=== PATIENT | female | born 1985 | race Caucasian/White ===

== ENCOUNTER 2017-06-20 01:42 | Emergency (ER) | payer OTHER ==
[~2017-06-20] VITALS: Ht 165.1 cm; Wt 60.0 kg
[2017-06-20 02:00] VITALS: BP 128/63; PULSE 91; RESP 16; TEMP 98.8; O2SAT 100
[2017-06-20 02:28] LABS: AUTOMATED NEUTROPHIL # 8.3 TH/MM3 (1.8-7.7); BASOPHIL % 0.3 % (0.0-2.0); EOSINOPHIL % 0.1 % (0.0-4.0); HEMO FLAGS DIFF FINAL; LYMPH % 8.5 % (9.0-44.0); LYMPHOCYTE # 0.8 TH/MM3 (1.0-4.8); MEAN CELL VOLUME 95.2 FL (80.0-100.0); MEAN CORPUSCULAR HEMOGLOBIN 32.5 PG (27.0-34.0); MEAN CORPUSCULAR HGB CONC 34.1 % (32.0-36.0); MONO % 2.4 % (0.0-8.0); NEUT % 88.7 % (16.0-70.0); PLATELET COUNT 232 TH/MM3 (150-450); RED BLOOD COUNT 3.79 MIL/MM3 (4.00-5.30); RED CELL DISTRIBUTION WIDTH 11.6 % (11.6-17.2); WHITE BLOOD COUNT 9.4 TH/MM3 (4.0-11.0)
--- NOTE | 2017-06-20 02:51 | PD ---
HPI Chief Complaint: Psychiatric Symptoms Time Seen by Provider: 01:53 Travel History International Travel<30 days: No Contact w/Intl Traveler<30days: No Traveled to known affect area: No History of Present Illness HPI 31-year-old female with no significant medical history presents to the emergency department under a Nesbitt act for psychiatric evaluation. Patient contracted argument with her . She said she was going to kill herself. Per report she took a knife and threatened to kill herself. Please recall. Patient was brought to the emergency department. Patient states that she was upset but did not want to kill herself. She has no suicidal or homicidal ideations. She reports no other symptoms at this time. PFSH Past Medical History Medical History: Denies Significant Hx Diminished Hearing: No Tetanus Vaccination: Unknown ?: Not LMP: 2 days ago : 0 Para: 0 Miscarriage: 0 : 0 Social History Alcohol Use: Yes (occ) Tobacco Use: No Substance Use: No Allergies-Medications (Allergen,Severity, Reaction): Coded Allergies: No Known Allergies (Unverified , 06/20/17) Reported Meds & Prescriptions Reported Meds & Active Scripts Active No Active Prescriptions or Reported Medications Review of Systems Except as stated in HPI: all other systems reviewed are Neg Physical Exam Narrative GENERAL: Well-nourished female patient, tearful but in no acute distress SKIN: Focused skin assessment warm/dry. HEAD: Atraumatic. Normocephalic. EYES: Pupils equal and round. No scleral icterus. No injection or drainage. ENT: No nasal bleeding or discharge. Mucous membranes pink and moist. NECK: Trachea midline. No JVD. CARDIOVASCULAR: Regular rate and rhythm. No murmur appreciated. RESPIRATORY: No accessory muscle use. Clear to auscultation. Breath sounds equal bilaterally. GASTROINTESTINAL: Abdomen soft, non-tender, nondistended. Hepatic and splenic margins not palpable. MUSCULOSKELETAL: No obvious deformities. No clubbing. No cyanosis. No edema. NEUROLOGICAL: Awake and alert. No obvious cranial nerve deficits. Motor grossly within normal limits. Normal speech. Data Data Last Documented VS Vital Signs Date Time Temp Pulse Resp B/P (MAP) Pulse Ox O2 Delivery O2 Flow Rate FiO2 06/20/17 02:00 98.8 91 16 128/63 (84) 100 Orders Orders Complete Blood Count With Diff (06/20/17 01:53) Basic Metabolic Panel (Bmp) (06/20/17 01:53) Ed Urine Pregnancytest Poc (06/20/17 01:53) Psych Screen (06/20/17 01:53) Drug Screen, Random Urine (06/20/17 01:53) Alcohol (Ethanol) (06/20/17 01:53) Labs Laboratory Tests Test 06/20/17 02:10 White Blood Count 9.4 TH/MM3 Red Blood Count 3.79 MIL/MM3 Hemoglobin 12.3 GM/DL Hematocrit 36.0 % Mean Corpuscular Volume 95.2 FL Mean Corpuscular Hemoglobin 32.5 PG Mean Corpuscular Hemoglobin Concent 34.1 % Red Cell Distribution Width 11.6 % Platelet Count 232 TH/MM3 Mean Platelet Volume 9.1 FL Neutrophils (%) (Auto) 88.7 % Lymphocytes (%) (Auto) 8.5 % Monocytes (%) (Auto) 2.4 % Eosinophils (%) (Auto) 0.1 % Basophils (%) (Auto) 0.3 % Neutrophils # (Auto) 8.3 TH/MM3 Lymphocytes # (Auto) 0.8 TH/MM3 Monocytes # (Auto) 0.2 TH/MM3 Eosinophils # (Auto) 0.0 TH/MM3 Basophils # (Auto) 0.0 TH/MM3 CBC Comment DIFF FINAL Differential Comment Blood Urea Nitrogen 10 MG/DL Creatinine 0.75 MG/DL Random Glucose 108 MG/DL Calcium Level 8.2 MG/DL Sodium Level 139 MEQ/L Potassium Level 4.0 MEQ/L Chloride Level 107 MEQ/L Carbon Dioxide Level 27.7 MEQ/L Anion Gap 4 MEQ/L Estimat Glomerular Filtration Rate 90 ML/MIN Urine Opiates Screen NEG Urine Barbiturates Screen NEG Urine Amphetamines Screen NEG Urine Benzodiazepines Screen NEG Urine Cocaine Screen NEG Urine Cannabinoids Screen NEG Ethyl Alcohol Level LESS THAN 3 MG/DL MDM Medical Decision Making Medical Screen Exam Complete: Yes Emergency Medical Condition: Yes Medical Record Reviewed: Yes Differential Diagnosis Mood disorder versus personality disorder versus adjustment reaction disorder Narrative Course 31-year-old female presents to emergency department a Nesbitt act for psychiatric evaluation. Patient appears without distress. Her vital signs are stable. Lab work is without acute concern. Patient is medically cleared to undergo psychiatric screening for further evaluation and disposition. Mental health screening discussed with the patient. Psychiatric screen ordered. 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
[2017-06-20 02:53] LABS: ANION GAP 4 MEQ/L (5-15); BICARBONATE 27.7 MEQ/L (21.0-32.0); BLOOD UREA NITROGEN 10 MG/DL (7-18); CHLORIDE 107 MEQ/L (98-107); GLOMERULAR FILTRATION RATE 90 ML/MIN (>89); SODIUM (NA) 139 MEQ/L (136-145)
[2017-06-20 03:03] LABS: ALCOHOL LESS THAN 3 MG/DL (0-5)
[2017-06-20 06:00] VITALS: PULSE 60; RESP 16; O2SAT 100
--- NOTE | 2017-06-20 12:07 | PD ---
History of Present Illness Chief Complaint: Psychiatric Symptoms Time Seen by Provider: 11:30 Travel History International Travel<30 Days: No Contact w/Intl Traveler<30days: No Known affected area: No Legal Status Legal Status: Nesbitt Act Nesbitt Act Signed By: Martínez Lara Nesbitt Act Comment: Ofc. Randall # [id number] History of Present Illness: History of Present Illness HPI 31-year-old female with no significant medical history and no psychiatric history presents to the emergency department under a Nesbitt act initiated by JOSHUA. The Nesbitt act alleges that the police were called by the patient's boyfriend after she picked up a knife and threatened to hurt herself. She did not make any attempt. Her threats were made in context of an argument with her boyfriend. The patient was monitored in J pod with no behavioral concerns and no suicidality. EMR reviewed. No previous contact with [facility] psychiatry. Patient is seen . She is alert, oriented, calm and cooperative female who appears stated age. Dressed in hospital gown and maintaining basic hygiene. Speech is clear, no psychosis and no nan. Patient with no objective clinical signs of depression or anxiety. She denies any psychiatric symptomatology. Denies any suicidal or homicidal ideation and states ' I was very angry and I made the threats but i never intended to harm myself or anyone". PFSH Past Medical History Medical History: Denies Significant Hx Diminished Hearing: No Tetanus Vaccination: Unknown ?: Not LMP: 2 days ago : 0 Para: 0 Miscarriage: 0 : 0 Psychiatric History Psychiatric History Hx Psychiatric Treatment: None History of Inpatient Treatment: No Guns or firearms in home: No Social History Single female who is living with her boyfriend. She has no children. works in accounts receivable Hx Alcohol Use: Yes (occ) Hx Tobacco Use: No Hx Substance Use: No Hx of Substance Use Treatment: No Family Psychiatric History Negative Allergies-Medications (Allergen,Severity, Reaction): Coded Allergies: No Known Allergies (Unverified , 06/20/17) Reported Meds & Prescriptions Reported Meds & Active Scripts Active No Active Prescriptions or Reported Medications Review of Systems Except as stated in HPI: all other systems reviewed are Neg Exam Alert: Yes [place]: Person (ox4) Mood: Calm Affect: Appropriate Speech: Clear, Logical Eye Contact: Normal Memory Intact: Comment (no impairment) Hallucinations: Other (Negative) Delusions: No Suicidal: Ideation (Deneis any) Homicidal: Ideation (Deneis any) Insight/Judgement Fair. Not impaired. MDM Medical Decision Making Medical Record Reviewed: Yes Assessment/Plan 31-year-old female with no significant medical history and no psychiatric history presents to the emergency department under a Nesbitt act initiated by JOSHUA. The Nesbitt act alleges that the police were called by the patient's boyfriend after she picked up a knife and threatened to hurt herself. She did not make any attempt. Her threats were made in context of an argument with her boyfriend. The patient was monitored in J pod with no behavioral concerns and no suicidality. No evidence of any unstable mental illness as defined under the Nesbitt act . Patietn is clear psychiatrically for discharge from ED. BA is lifted. Orders Orders Complete Blood Count With Diff (06/20/17 01:53) Basic Metabolic Panel (Bmp) (06/20/17 01:53) Ed Urine Pregnancytest Poc (06/20/17 01:53) Psych Screen (06/20/17 01:53) Drug Screen, Random Urine (06/20/17 01:53) Alcohol (Ethanol) (06/20/17 01:53) Diet Regular Basic (06/20/17 Lunch) Results Vital Signs Date Time Temp Pulse Resp B/P (MAP) Pulse Ox O2 Delivery O2 Flow Rate FiO2 06/20/17 06:00 60 16 100 Room Air 06/20/17 02:00 98.8 91 16 128/63 (84) 100 Laboratory Tests Test 06/20/17 02:10 White Blood Count 9.4 Red Blood Count 3.79 Hemoglobin 12.3 Hematocrit 36.0 Mean Corpuscular Volume 95.2 Mean Corpuscular Hemoglobin 32.5 Mean Corpuscular Hemoglobin Concent 34.1 Red Cell Distribution Width 11.6 Platelet Count 232 Mean Platelet Volume 9.1 Neutrophils (%) (Auto) 88.7 Lymphocytes (%) (Auto) 8.5 Monocytes (%) (Auto) 2.4 Eosinophils (%) (Auto) 0.1 Basophils (%) (Auto) 0.3 Neutrophils # (Auto) 8.3 Lymphocytes # (Auto) 0.8 Monocytes # (Auto) 0.2 Eosinophils # (Auto) 0.0 Basophils # (Auto) 0.0 CBC Comment DIFF FINAL Differential Comment Blood Urea Nitrogen 10 Creatinine 0.75 Random Glucose 108 Calcium Level 8.2 Sodium Level 139 Potassium Level 4.0 Chloride Level 107 Carbon Dioxide Level 27.7 Anion Gap 4 Estimat Glomerular Filtration Rate 90 Urine Opiates Screen NEG Urine Barbiturates Screen NEG Urine Amphetamines Screen NEG Urine Benzodiazepines Screen NEG Urine Cocaine Screen NEG Urine Cannabinoids Screen NEG Ethyl Alcohol Level LESS THAN 3 Diagnosis Primary Impression: Adjustment reaction Psychiatrically Cleared: Yes Med/ Other Pt Specific Info: No Meds Exist/No RX given Prescriptions No Active Prescriptions or Reported Meds Disposition: 01 DISCHARGE HOME Condition: Stable Problem Qualifiers Primary Impression: Adjustment reaction Qualified Codes: F43.25 - Adjustment disorder with mixed disturbance of emotions and conduct Rebecca Munguia Jun 20, 2017 12:07
--- NOTE | 2017-06-20 12:48 | PD ---
Physical Exam Time Seen by Provider: 12:46 NORY Campbell evaluated the patient, lifted the Nesbitt act and the patient will be discharged home. Data Data Last Documented VS Vital Signs Date Time Temp Pulse Resp B/P (MAP) Pulse Ox O2 Delivery O2 Flow Rate FiO2 06/20/17 06:00 60 16 100 Room Air 06/20/17 02:00 98.8 128/63 (84) Orders Orders Complete Blood Count With Diff (06/20/17 01:53) Basic Metabolic Panel (Bmp) (06/20/17 01:53) Ed Urine Pregnancytest Poc (06/20/17 01:53) Psych Screen (06/20/17 01:53) Drug Screen, Random Urine (06/20/17 01:53) Alcohol (Ethanol) (06/20/17 01:53) Diet Regular Basic (06/20/17 Lunch) Labs Laboratory Tests Test 06/20/17 02:10 White Blood Count 9.4 TH/MM3 Red Blood Count 3.79 MIL/MM3 Hemoglobin 12.3 GM/DL Hematocrit 36.0 % Mean Corpuscular Volume 95.2 FL Mean Corpuscular Hemoglobin 32.5 PG Mean Corpuscular Hemoglobin Concent 34.1 % Red Cell Distribution Width 11.6 % Platelet Count 232 TH/MM3 Mean Platelet Volume 9.1 FL Neutrophils (%) (Auto) 88.7 % Lymphocytes (%) (Auto) 8.5 % Monocytes (%) (Auto) 2.4 % Eosinophils (%) (Auto) 0.1 % Basophils (%) (Auto) 0.3 % Neutrophils # (Auto) 8.3 TH/MM3 Lymphocytes # (Auto) 0.8 TH/MM3 Monocytes # (Auto) 0.2 TH/MM3 Eosinophils # (Auto) 0.0 TH/MM3 Basophils # (Auto) 0.0 TH/MM3 CBC Comment DIFF FINAL Differential Comment Blood Urea Nitrogen 10 MG/DL Creatinine 0.75 MG/DL Random Glucose 108 MG/DL Calcium Level 8.2 MG/DL Sodium Level 139 MEQ/L Potassium Level 4.0 MEQ/L Chloride Level 107 MEQ/L Carbon Dioxide Level 27.7 MEQ/L Anion Gap 4 MEQ/L Estimat Glomerular Filtration Rate 90 ML/MIN Urine Opiates Screen NEG Urine Barbiturates Screen NEG Urine Amphetamines Screen NEG Urine Benzodiazepines Screen NEG Urine Cocaine Screen NEG Urine Cannabinoids Screen NEG Ethyl Alcohol Level LESS THAN 3 MG/DL MDM Supervised Visit with INDRA: Yes Narrative Course NORY Fernandez has evaluated the patient, lifted the Nesbitt act and the patient will be discharged home. Patient contracts safety. Denies suicidal or homicidal ideations. Patient will be provided community resource packet to [facility] for follow-up. Has friends and family for support. Patient is medically cleared for discharge. Diagnosis Primary Impression: Adjustment reaction Qualified Codes: F43.25 - Adjustment disorder with mixed disturbance of emotions and conduct Referrals: [facility] Primary Care Physician Psychiatrist [facility] Additional Instruction: Contract safety to your self and others Follow-up with psychiatry Follow-up with primary care provider Follow-up with Koffi Cameron Return to the emergency department immediately with worsening of symptoms Med/Other Pt SpecificInfo: No Meds Exist/No RX given Scripts No Active Prescriptions or Reported Meds Disposition: 01 DISCHARGE HOME Condition: Stable Meli Grossman Jun 20, 2017 12:48
== END 2017-06-20 14:09 | disposition home or self-care (01) ==
LOC: NEPD 01:42 → NEPJ 14:09
DX: F43.25 Adjustment disorder with mixed disturbance of emotions and conduct (principal)
CPT/HCPCS: 80048; 80307; 84703; 85025; 99284